=== PATIENT | female | born 1995 | race Caucasian/White ===

== ENCOUNTER 2025-06-26 12:58 | Emergency (ER) | payer OTHER ==
[~2025-06-26] VITALS: Ht 154.9 cm; Wt 68.0 kg
[2025-06-26 13:01] VITALS: TEMP 98.7; O2SAT 99
[2025-06-26] MEDS: LORAZEPAM 2MG/ML UD SYRINGE IM SCH (16:40)
[2025-06-26 16:46] VITALS: BP 138/94; PULSE 78; RESP 12; O2SAT 100
== END 2025-06-26 16:49 | disposition home or self-care (01) ==
LOC: ER 12:58
DX: F43.0 Acute stress reaction (principal)
CPT/HCPCS: 93005; 96372; 99283; J2060; Z7610